=== PATIENT | female | born 1990 | race Caucasian/White ===

== ENCOUNTER 2016-06-23 07:08 | Inpatient (IN) | payer OTHER ==
[~2016-06-23] VITALS: Ht 149.9 cm; Wt 69.9 kg
[~2016-06-23 07:08] MED LIST: ANTIVERT 25 MG25 MG PO; CATAPRES 0.1MG0.1 MG PO; CATAPRES0.1 MG PO; CLONIDINE0.1 MG PO; DOCUSATE SODIU100 MG PO; HYDROMORPHONE HC2 MG PO; JUNEL FE 1/20 21 TAB PO; LATUDA40 MG PO; MOBIC15 MG PO; MOTRIN 800MG T800 MG PO; NEURONTIN300 MG PO; NORCO 325 MG-51 TAB PO; PRENATAL1 TA2 PO; XANAX0.5 MG PO; ZOFRAN ODT4 MG SL; ZOLOFT 100 MG100 MG PO; ZOLOFT50 MG PO
--- NOTE | 2016-06-23 07:13 | NUR ---
25 YEAR OLD FEMALE WITH HISTORY OF OVARIAN CYST STATES THAT SHE WOKE THIS AM WITH 10/10 LOW ABD PAIN THAT SHOOTS INTO HER GROIN, PAIN HAS BEEN CONSTANT. COMPLAINS OF N/V FROM THE PAIN. " PT STATES THAT IT FEELS LIKE THE LAST TIME SHE HAD A CYST BURST. LMP MID LAST MONTH
--- NOTE | 2016-06-23 07:33 | ED GI/GU/ABDOMINAL COMPLAINT ---
History of Present Illness General Chief Complaint: Abdominal Pain/Flank Pain Stated Complaint: ABDOMINAL PAIN Source: patient Exam Limitations: no limitations Vital Signs & Intake/Output Vital Signs & Intake/Output Vital Signs Date Time Temp Pulse Resp B/P B/P Pulse O2 O2 Flow FiO2 Mean Ox Delivery Rate 06/23 0813 Room Air 06/23 0711 96.9 108 18 105/75 100 Room Air Allergies Coded Allergies: No Known Allergies (05/17/15) Reconcile Medications Ibuprofen 800 MG TABLET 800 MG PO Q6P PRN PAIN Lamotrigine (Lamictal) 100 MG TABLET 1 TAB PO DAILY UNKNOWN (Reported) Propranolol HCl 20 MG TABLET 1 TAB PO DAILY UNKNOWN (Reported) Sertraline HCl (Zoloft) 100 MG TABLET 2 TAB PO DAILY MENTAL HEALTH (Reported) Triage Note: 25 YEAR OLD FEMALE WITH HISTORY OF OVARIAN CYST STATES THAT SHE WOKE THIS AM WITH 10/10 LOW ABD PAIN THAT SHOOTS INTO HER GROIN, PAIN HAS BEEN CONSTANT. COMPLAINS OF N/V FROM THE PAIN. " PT STATES THAT IT FEELS LIKE THE LAST TIME SHE HAD A CYST BURST. LMP MID LAST MONTH Triage Nurses Notes Reviewed? yes ? N Is pt currently ? No Onset: Abrupt Duration: hour(s): (2) Timing: multiple episodes today Quality/Severity: severe Severity Numbers: 10 Location: generalized abdomen, suprapubic Radiation: no radiation Sexually Active: Yes Last Time You Were Sexual: less than 2 months ago No Modifying Factors: none Associated Symptoms: diarrhea, nausea/vomiting HPI: This is a 25 Y/O [id number] is the ER with chief complaint of abrupt onset of severe, 10 out of 10 lower abdominal pain. She states that she woke up this morning at 6 am and had 1 episode of diarrhea and then had suddent onset of pain. After that she became hunched over on the toilet had a few episodes of loose vomiting. She states after that she was on the floor. Denies any urinary discomfort. No fever or chills. She was fine until yesterday. Denies any change in food, travel or antibiotic use. Denies chance of . LMP was sometime during the last 1 month. Denies any vaginal discharge. She states that she had similar symptoms when she had ovarian cyst rupture in 2009. She is also status post appendectomy. Pain is associated with nausea, vomiting and diarrhea. Pain is made worse by lying totally flat. No relieving symptoms. Past History Travel History Traveled to [place] past 21 day No Medical History Any Pertinent Medical History? 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 No Review of Systems Review of Systems Constitutional: Denies: chills, fever. EENTM: Reports: no symptoms. Respiratory: Reports: no symptoms. Cardiovascular: Reports: no symptoms. GI: Reports: abdominal pain, diarrhea, nausea, vomiting. Genitourinary: Denies: discharge, dysuria, frequency, hesitation. Musculoskeletal: Denies: back pain. Skin: Reports: no symptoms. Neurological/Psychological: Reports: no symptoms. Hematologic/Endocrine: Denies: bruising, bleeding, polyuria, polydipsia. Immunologic/Allergic: Denies: splenectomy. All Other Systems: Reviewed and Negative Physical Exam Physical Exam General Appearance: well developed/nourished, alert, awake, anxious, moderate distress, obese Head: atraumatic, normal appearance Eyes: Bilateral: normal appearance, PERRL, EOMI. Ears, Nose, Throat, Mouth: hearing grossly normal, moist mucous membrane Neck: normal inspection, supple, full range of motion Respiratory: normal breath sounds, chest non-tender, no respiratory distress Cardiovascular: tachycardia Peripheral Pulses: 2+ radial (R), 2+ radial (L) Gastrointestinal: FIRM, DISTENDED, POSITIVE REBOUND/GUARDING Extremities: normal range of motion Neurologic/Psych: no motor/sensory deficits, awake, alert, oriented x 3 Skin: intact, normal color, warm/dry Core Measures ACS in differential dx? No Severe Sepsis Present: No Septic Shock Present: No Progress Differential Diagnosis: ectopic , intrauterine , kidney stone, ovarian cyst, ovarian torsion Plan of Care: Orders Procedure Date/time Status LACTIC ACID 06/23 1105 Active Add-on Test (ER Only) 06/23 0837 Active LACTIC ACID 06/23 804 Complete HUMAN BETA HCG TITRE 06/24 799 Complete URINALYSIS 06/23 744 Active PARTIAL THROMBOPLASTIN TIME 06/23 744 Complete PROTHROMBIN TIME 06/23 744 Complete HUMAN BETA HCG SCREEN 06/23 744 Complete COMPREHENSIVE METABOLIC PANEL 06/23 744 Complete CBC WITHOUT DIFFERENTIAL 06/23 744 Complete TYPE & SCREEN (NOT X-MATCH) 06/23 744 Active Current Medications Sig/Hadley Start time Last Medication Dose Stop Time Status Admin Sodium Chloride 1,000 ML BOLUS ONE 06/23 844 AC 06/23 (Normal Saline 0.9%) 06/23 0944 0910 Laboratory Tests 06/23/16 0800: Lactic Acid 4.7 H 06/23/16 0800: Anion Gap 16, Estimated GFR > 60, BUN/Creatinine Ratio 15.0, Glucose 176 H, Calcium 9.6, Total Bilirubin 0.5, AST 24, ALT 26, Alkaline Phosphatase 73, Total Protein 7.1, Albumin 4.5, Globulin 2.6, Albumin/Globulin Ratio 1.7, Beta HCG, Quant 6032.8, Total Beta HCG POSITIVE, PT 10.6, INR 1.01, APTT 25, CBC w Diff MAN DIFF ORDERED, RBC 4.26, MCV 87.2, MCH 29.0, RDW 13.3, MPV 9.2, Gran % 88.5 H, Lymphocytes % 7.6 L, Monocytes % 1.5 L, Eosinophils % 1.9, Basophils % 0.5, Absolute Granulocytes 16.8 H, Absolute Lymphocytes 1.4, Absolute Monocytes 0.3, Absolute Eosinophils 0.4, Absolute Basophils 0.1, Platelet Estimate ADEQUATE, Normocytic RBCs VERIFIED, Normochromic RBCs VERIFIED, PUBS MCHC 33.3 stat u/s ordered. labs, morphine ordered. 8:42 am ectopic right adnexal . dr ting hector. patient prepared for OR. D/W Dr. howell. Patient to be transported to OR. (TED CHAPPELL,TREMAINE) Diagnostic Imaging: Viewed by Me: Ultrasound. Discussed w/RAD: Ultrasound. Radiology Impression: PATIENT: YVETTE MILLER PRESENT AGE: 25 PATIENT ACCOUNT NO: [id number] : 89 LOCATION: ER ORDERING PHYSICIAN: TREMAINE PICKERING MD SERVICE DATE: 06/23/16 EXAM TYPE: US - US-TRANSVAGINAL EXAMINATION: US PELVIS TRANSVAGINAL CLINICAL INFORMATION: 25-year-old female with sudden onset lower abdominal pain, vomiting. The patient is . COMPARISON: Pelvic ultrasound done on 01/21/2014. TECHNIQUE: Transvaginal pelvic ultrasound. FINDINGS: The uterus is retroverted, measures 6.2 x 3.5 x 6.5 cm. The endometrial stripe is thickened, homogeneous, and measures 0.7 cm at its maximum transverse dimension at the level of the fundus. The uterine cavity, however, is empty. The cervix is closed and measures 2.5 cm. There is no focal intrauterine abnormality identified. The left ovary is not visualized. The right ovary is identified, measures 2.2 x 3.0 x 2.0 cm, volume of 7.2 mL. Arterial as well as venous flow to the right ovary is well maintained. In the region of the right adnexa, there is a hypervascular, oval- shaped, mixed echogenic structure identified, showing a peripheral echogenic rim and central anechogenicity which measures 2.0 x 1.2 x 1.7 cm. Within the central anechogenicity, there is a pole visualized measuring 0.6 cm at its maximum crown-rump length. On real-time evaluation, cardiac activity was visualized with a heart rate of 141 bpm. There is hypervascularity along the periphery, consistent with "tubal ring sign". There is significant adjacent somewhat echogenic material identified in the adnexal region. The gestational age based on the sonographic criteria is 6 weeks and 4 days. Given the presence of heartbeat, the location of the gestational sac and the presence of adjacent echogenic material, the finding is most consistent with an extrauterine ectopic , likely tubal, suspicious for rupture. Clinical and laboratory correlation including hemodynamic assessment is recommended. Gynecological consultation is recommended. IMPRESSION: 1. Abnormal pelvic ultrasound showing features consistent with a live, ectopic in the region of the right adnexa, likely tubal, suspicious for rupture. Clinical and laboratory correlation including hemodynamic assessment is recommended. Gynecological consultation is recommended. 2. Nonvisualized left ovary. This critical result was discussed with Dr. Pickering at 8:43 AM on 06/23/2016 and it was ascertained that the content and urgency of the report was understood at the time of direct communication. DICTATED BY: VIK REYNAGA MD DATE/TIME DICTATED:06/23/16843 HUMAN RESOURCES COMPENSATION ANALYST:SURINDER DATE/TIME TRANSCRIBED:06/23/16843 CONFIDENTIAL, DO NOT COPY WITHOUT APPROPRIATE AUTHORIZATION. <Electronically signed in Other Vendor System> SIGNED BY: VIK REYNAGA MD 06/23/16 0925 Initial ED EKG: none Departure Departure Time of Disposition: 1000 Disposition: STILL A PATIENT Condition: Stable Clinical Impression Primary Impression: Ruptured ectopic Referrals: TYE SPAULDING MD (PCP/Family) Departure Forms: Customer Survey General Discharge Information Prescriptions: Current Visit Scripts Ibuprofen 800 MG PO Q6P PRN PAIN #60 OR/GI Note Spoke With: BEBO GARDINER MD,MARTHA ED Treatment Decision: YVETTE MILLER requires urgent operative management or an emergent procedure that cannot be performed in the Emergency Room setting. Transport To: [facility] Critical Care Note Critical Care Note Critical Care Time: 30-74 min
--- NOTE | 2016-06-23 08:08 | NUR ---
22G PLACED IN LEFT HAND, LABS DRAWN AND SENT.
--- NOTE | 2016-06-23 08:09 | NUR ---
IV NS BOLUS INFUSING PER eMAR.
--- NOTE | 2016-06-23 08:10 | NUR ---
PT MEDICATED PER EMAR FOR ABD PAIN AND NAUSEA
--- NOTE | 2016-06-23 08:13 | NUR ---
PT TO US VIA STRETCHER
[2016-06-23 08:20] LABS: ABSOLUTE BASOPHIL COUNT 0.1 /CUMM (0.0-0.2); ABSOLUTE EOSINOPHIL COUNT 0.4 /CUMM (0.0-0.7); ABSOLUTE GRANULOCYTE CT 16.8 /CUMM (1.4-6.5); ABSOLUTE LYMPH COUNT 1.4 /CUMM (1.2-3.4); ABSOLUTE MONOCYTE COUNT 0.3 /CUMM (0.10-0.60); BASOPHIL % 0.5 % (0.0-2.0); EOSINOPHIL % 1.9 % (0-5); GRANULOCYTE % 88.5 % (42.2-75.2); HEMATOCRIT 37.1 % (37-47); MEAN CORPUSCULAR HGB CONC 33.3 G/DL (33.0-37.0); MEAN CORPUSCULAR VOLUME 87.2 FL (81.0-99.0); MEAN PLATELET VOLUME 9.2 FL (7.4-10.4); PLATELET COUNT 295 /CUMM (130-400); RBC DISTRIBUTION WIDTH 13.3 % (11.5-14.5); RED BLOOD CELL CT 4.26 /CUMM (4.20-5.40)
[2016-06-23 08:31] LABS: PT 10.6 SEC (9.4-12.5); PTT 25 SEC (25-37)
--- NOTE | 2016-06-23 08:36 | NUR ---
LAB CALLED TO NOTIFIED THAT PINK TOP HEMOLYZED
--- NOTE | 2016-06-23 08:49 | NUR ---
PER DR JEAN THE LAB CALLED AND PT LACTIC LEVEL IS 4.7
[2016-06-23] MEDS ORDERED: PROPRANOLOL HCL20 M1 PO (09:05)
[2016-06-23] MEDS ORDERED: LAMICTAL100 M2 PO (09:06)
[2016-06-23] MEDS ORDERED: ZOLOFT100 M1 PO (09:06)
--- NOTE | 2016-06-23 09:25 | ULTRASOUND REPORT ---
EXAMINATION: US PELVIS TRANSVAGINAL CLINICAL INFORMATION: 25-year-old female with sudden onset lower abdominal pain, vomiting. The patient is . COMPARISON: Pelvic ultrasound done on 01/21/2014. TECHNIQUE: Transvaginal pelvic ultrasound. FINDINGS: The uterus is retroverted, measures 6.2 x 3.5 x 6.5 cm. The endometrial stripe is thickened, homogeneous, and measures 0.7 cm at its maximum transverse dimension at the level of the fundus. The uterine cavity, however, is empty. The cervix is closed and measures 2.5 cm. There is no focal intrauterine abnormality identified. The left ovary is not visualized. The right ovary is identified, measures 2.2 x 3.0 x 2.0 cm, volume of 7.2 mL. Arterial as well as venous flow to the right ovary is well maintained. In the region of the right adnexa, there is a hypervascular, oval-shaped, mixed echogenic structure identified, showing a peripheral echogenic rim and central anechogenicity which measures 2.0 x 1.2 x 1.7 cm. Within the central anechogenicity, there is a pole visualized measuring 0.6 cm at its maximum crown-rump length. On real-time evaluation, cardiac activity was visualized with a heart rate of 141 bpm. There is hypervascularity along the periphery, consistent with "tubal ring sign". There is significant adjacent somewhat echogenic material identified in the adnexal region. The gestational age based on the sonographic criteria is 6 weeks and 4 days. Given the presence of heartbeat, the location of the gestational sac and the presence of adjacent echogenic material, the finding is most consistent with an extrauterine ectopic , likely tubal, suspicious for rupture. Clinical and laboratory correlation including hemodynamic assessment is recommended. Gynecological consultation is recommended. IMPRESSION: 1. Abnormal pelvic ultrasound showing features consistent with a live, ectopic in the region of the right adnexa, likely tubal, suspicious for rupture. Clinical and laboratory correlation including hemodynamic assessment is recommended. Gynecological consultation is recommended. 2. Nonvisualized left ovary. This critical result was discussed with Dr. Pickering at 8:43 AM on 06/23/2016 and it was ascertained that the content and urgency of the report was understood at the time of direct communication.
--- NOTE | 2016-06-23 10:07 | NUR ---
PT TO OR VIA STRETCHER
[2016-06-23 11:03] LABS: ABSOLUTE BASOPHIL COUNT 0 /CUMM (0.0-0.2); ABSOLUTE EOSINOPHIL COUNT 0 /CUMM (0.0-0.7); ABSOLUTE LYMPH COUNT 1.4 /CUMM (1.2-3.4); ABSOLUTE MONOCYTE COUNT 0.3 /CUMM (0.10-0.60); BASOPHIL % 0.1 % (0.0-2.0); EOSINOPHIL % 0.1 % (0-5); GRANULOCYTE % 91.7 % (42.2-75.2); MEAN CORPUSCULAR HGB 29.3 PG (27.0-31.0); MEAN CORPUSCULAR HGB CONC 33.7 G/DL (33.0-37.0); MEAN CORPUSCULAR VOLUME 86.9 FL (81.0-99.0); MEAN PLATELET VOLUME 9.4 FL (7.4-10.4); PLATELET COUNT 161 /CUMM (130-400); RBC DISTRIBUTION WIDTH 13.1 % (11.5-14.5); WHITE BLOOD CELL COUNT 20.8 /CUMM (4.8-10.8)
[2016-06-23 11:08] LABS: HEMATOCRIT 23.9 % (37-47); RED BLOOD CELL CT 2.75 /CUMM (4.20-5.40)
--- NOTE | 2016-06-23 11:37 | RADIOLOGY REPORT ---
EXAMINATION: XR PORTABLE ABDOMEN CLINICAL INFORMATION: Status post emergency surgery for ectopic . Suspected foreign body. COMPARISON: None TECHNIQUE: AP view of the abdomen. FINDINGS: No radiopaque foreign body is identified within the pelvis and visualized part of the abdomen. Multiple surgical pk are seen projecting across the midline within the mid to lower pelvis. IMPRESSION: No radiopaque foreign bodies present. This critical result was discussed with Dr. Stanley at 11:31 AM on 06/23/2016 and it was ascertained that the content and urgency of the report was understood at the time of direct communication.
[2016-06-23 16:40] LABS: ABSOLUTE BASOPHIL COUNT 0.1 /CUMM (0.0-0.2); ABSOLUTE EOSINOPHIL COUNT 0 /CUMM (0.0-0.7); ABSOLUTE GRANULOCYTE CT 15.1 /CUMM (1.4-6.5); ABSOLUTE LYMPH COUNT 0.9 /CUMM (1.2-3.4); ABSOLUTE MONOCYTE COUNT 0.4 /CUMM (0.10-0.60); BASOPHIL % 0.6 % (0.0-2.0); EOSINOPHIL % 0 % (0-5); HEMATOCRIT 27.4 % (37-47); MEAN CORPUSCULAR HGB 29.4 PG (27.0-31.0); MEAN CORPUSCULAR HGB CONC 33.4 G/DL (33.0-37.0); MEAN CORPUSCULAR VOLUME 88.1 FL (81.0-99.0); MEAN PLATELET VOLUME 8.6 FL (7.4-10.4); PLATELET COUNT 175 /CUMM (130-400); RBC DISTRIBUTION WIDTH 13.2 % (11.5-14.5); RED BLOOD CELL CT 3.11 /CUMM (4.20-5.40); WHITE BLOOD CELL COUNT 16.5 /CUMM (4.8-10.8)
[2016-06-23 16:47] LABS: GRANULOCYTE % 91.2 % (42.2-75.2)
--- NOTE | 2016-06-23 18:39 | History & Physical Pre-Op ---
General Information and HPI History of Present Illness: This patient is a 25-year-old 3 para 2 LMP 3 weeks ago presents to the emergency room complaining of abdominal pain. Vision has a history of ovarian cyst and she believes that she had a return of ovarian cyst causing pain. Patient was on oral contraceptive pills however she was noncompliant. She denied any vaginal bleeding. Ultrasound this morning revealed a right ectopic consistent with 6 weeks and heart activity present. The a small amount of fluid was noted surrounding the . 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 EENTM: Denies: no symptoms, see HPI, blurred vision, double vision, visual changes, eye pain, eye drainage, eye tearing, icterus, ear discharge, ear pain, ear redness, hearing changes, nasal congestion, epistaxis, nasal pain, throat pain, throat swelling, mouth pain, tooth pain. Cardiovascular: Denies: no symptoms, see HPI, chest pain, edema, orthopena, palpitations, peripheral edema, syncope. Respiratory: Denies: no symptoms, see HPI, cough, hemoptysis, orthopnea, short of breath, sputum production, stridor, wheezing. GI: Reports: abdominal pain. Denies: no symptoms, see HPI, bloating, constipation, diarrhea, distention, bowel incontinence, melena, nausea, bloody stool, changes in stool, vomiting, steatorrhea. Genitourinary: Denies: no symptoms, see HPI, discharge, dysuria, frequency, hematuria, hesitation, nocturia, pain, urgency. Musculoskeletal: Denies: no symptoms, see HPI, back pain, gout, joint pain, joint swelling, muscle pain, muscle stiffness, neck pain. Skin: Denies: no symptoms, see HPI, cysts, change in skin color, change in hair/nails, dryness, erythema, jaundice, lesions, lymphangitis, lumps, moles, rash. Neurological/Psychological: Denies: no symptoms, see HPI, anxiety, ataxia, cognitive dysfunction, confusion, depressed, dementia, emotional problems, headache, numbness, paresthesia, pre- existing deficit, petit mal seizures, tingling, tremors, tonic-clonic seizures, unable to move lower ext, unable to move upper ext, weakness, other. Hematologic/Endocrine: Denies: no symptoms, see HPI, bruising, bleeding, polyuria, polydipsia, other. Immunologic/Allergic: Denies: no symptoms, see HPI, splenectomy, HIV/AIDS, lymphadenopathy, other. All Other Systems: Reviewed and Negative Exam & Diagnostic Data Last 24 Hrs of Vital Signs/I&O Vital Signs Date Time Temp Pulse Resp B/P B/P Pulse O2 O2 Flow FiO2 Mean Ox Delivery Rate 06/23 1004 98.9 97 16 115/56 100 06/23 0813 Room Air 06/23 0711 96.9 108 18 105/75 100 Room Air Intake & Output 06/23 1600 / 0800 05 0000 Intake Total 1000 Output Total Balance 1000 Intake, IV 1000 Patient 154 lb Weight Physical Exam: HEENT: Normocephalic atraumatic Chest: Clear to auscultation bilaterally Cardiovascular: Normal S1-S2, tachycardia Abdomen: Tender distended Pelvic: Deferred to the OR Extremities: No clubbing cyanosis or edema Last 24 Hrs of Labs/George: Laboratory Tests 06/23/16 1630: CBC w Diff NO MAN DIFF REQ, RBC 3.11 L, MCV 88.1, MCH 29.4, RDW 13.2, MPV 8.6, Gran % 91.2 H, Lymphocytes % 5.6 L, Monocytes % 2.6, Eosinophils % 0, Basophils % 0.6, Absolute Granulocytes 15.1 H, Absolute Lymphocytes 0.9 L, Absolute Monocytes 0.4, Absolute Eosinophils 0, Absolute Basophils 0.1, [facility] 33.4 06/23/16 1100: CBC w Diff MAN DIFF ORDERED, RBC 2.75 L, MCV 86.9, MCH 29.3, RDW 13.1, MPV 9.4, Gran % 91.7 H, Lymphocytes % 6.7 L, Monocytes % 1.4 L, Eosinophils % 0.1, Basophils % 0.1, Absolute Granulocytes 19.0 H, Absolute Lymphocytes 1.4, Absolute Monocytes 0.3, Absolute Eosinophils 0, Absolute Basophils 0, Platelet Estimate ADEQUATE, Normocytic RBCs VERIFIED, Hypochromic-Microcytic 1+, Poikilocytosis RARE, [facility] 33.7 06/23/16 0800: Lactic Acid 4.7 H 06/23/16 0800: Anion Gap 16, Estimated GFR > 60, BUN/Creatinine Ratio 15.0, Glucose 176 H, Calcium 9.6, Total Bilirubin 0.5, AST 24, ALT 26, Alkaline Phosphatase 73, Total Protein 7.1, Albumin 4.5, Globulin 2.6, Albumin/Globulin Ratio 1.7, Beta HCG, Quant 6032.8, Total Beta HCG POSITIVE, PT 10.6, INR 1.01, APTT 25, CBC w Diff MAN DIFF ORDERED, RBC 4.26, MCV 87.2, MCH 29.0, RDW 13.3, MPV 9.2, Gran % 88.5 H, Lymphocytes % 7.6 L, Monocytes % 1.5 L, Eosinophils % 1.9, Basophils % 0.5, Absolute Granulocytes 16.8 H, Absolute Lymphocytes 1.4, Absolute Monocytes 0.3, Absolute Eosinophils 0.4, Absolute Basophils 0.1, Platelet Estimate ADEQUATE, Normocytic RBCs VERIFIED, Normochromic RBCs VERIFIED, [facility] 33.3 Microbiology 06/23 1115 URINE ROUT: Urine Culture - RECD Diagnostic Data ITS Data Unobtainable at this time Assessment/Plan Assessment/Plan: Ectopic right fallopian tube Plan: Laparoscopy, possible laparotomy As Ranked By This Provider Problem List: 1. Ruptured ectopic
--- NOTE | 2016-06-23 18:42 | Operative Report ---
Operative/Inv Procedure Report Surgery Date: 06/23/16 Name of Procedure: Exploratory laparotomy right salpingectomy Pre-Operative Diagnosis: Ruptured ectopic Post-Operative Diagnosis: Hemoperitoneum, ruptured right ectopic Estimated Blood Loss: 2000cc Surgeon/Machine Chocolate Molder: BEBO GARDINER MD,MARTHA Kaufman M.D. Anesthesia: general endotracheal tube Operative/Procedure Note Note: Is brought to the operating room placed on the OR table in the dorsal supine position. She quickly became unstable and was quickly anesthetized and intubated. A Muniz catheter was placed the abdomen was prepped and draped. A Pfannenstiel skin incision was made with the scalpel through the old scar and taken down to the layer of the fascia. The fascia was nicked in the midline and extended bilaterally. Rectus muscles are . The peritoneal cavity was entered sharply and old blood began to rise through the opening. This was suctioned out with suction. H&H on was incised superiorly and bilaterally. Proximally 2000 mL of old clot were removed. The uterus was noted and elevated. The right fallopian tube was ruptured near the cornua with evidence of bleeding. A Viv clamp was placed across the fallopian tube at this point transected and suture ligated with 0 Polysorb. There was some bleeding inferior on the broad ligament and a clamp was placed here suture ligated with good hemostasis. There was a small tear in the serosa which was bleeding lightly and this was reapproximated in a running suture of 3-0 Polysorb. Eventually all of the clot was removed and the pelvis was copiously irrigated and was noted to be hemostatic. The laparotomy pads were removed as well as these retractors which were used for surgery. The rectus muscles were reapproximated with a mattress suture of 2-0 Polysorb. The fascia was then closed using 0 Polysorb in a running nonlocking fashion. The tenderness tissues were irrigated and coagulated were needed and closed with 20 plain suture material. The skin was closed with pk and dressed with a dry sterile dressing. The patient was transfused with 1 unit of packed red blood cells and sent to recovery in stable condition. A postoperative abdominal flat plate was obtained since there was no prior count and this returned negative.
[2016-06-23 22:58] LABS: ABSOLUTE BASOPHIL COUNT 0 /CUMM (0.0-0.2); ABSOLUTE EOSINOPHIL COUNT 0 /CUMM (0.0-0.7); ABSOLUTE GRANULOCYTE CT 10.3 /CUMM (1.4-6.5); ABSOLUTE LYMPH COUNT 1.6 /CUMM (1.2-3.4); ABSOLUTE MONOCYTE COUNT 0.9 /CUMM (0.10-0.60); BASOPHIL % 0.3 % (0.0-2.0); EOSINOPHIL % 0.3 % (0-5); GRANULOCYTE % 80.1 % (42.2-75.2); HEMATOCRIT 23.5 % (37-47); MEAN CORPUSCULAR HGB 29.4 PG (27.0-31.0); MEAN CORPUSCULAR HGB CONC 33.5 G/DL (33.0-37.0); MEAN CORPUSCULAR VOLUME 87.7 FL (81.0-99.0); MEAN PLATELET VOLUME 8.2 FL (7.4-10.4); PLATELET COUNT 159 /CUMM (130-400); RBC DISTRIBUTION WIDTH 13.6 % (11.5-14.5); RED BLOOD CELL CT 2.68 /CUMM (4.20-5.40); WHITE BLOOD CELL COUNT 12.9 /CUMM (4.8-10.8)
[2016-06-24 09:00] LABS: ABSOLUTE BASOPHIL COUNT 0 /CUMM (0.0-0.2); ABSOLUTE EOSINOPHIL COUNT 0.1 /CUMM (0.0-0.7); ABSOLUTE GRANULOCYTE CT 7.3 /CUMM (1.4-6.5); ABSOLUTE LYMPH COUNT 2.5 /CUMM (1.2-3.4); ABSOLUTE MONOCYTE COUNT 0.7 /CUMM (0.10-0.60); BASOPHIL % 0.3 % (0.0-2.0); EOSINOPHIL % 1.2 % (0-5); GRANULOCYTE % 68.1 % (42.2-75.2); HEMATOCRIT 22.1 % (37-47); MEAN CORPUSCULAR HGB 30.2 PG (27.0-31.0); MEAN CORPUSCULAR HGB CONC 34.4 G/DL (33.0-37.0); MEAN CORPUSCULAR VOLUME 87.8 FL (81.0-99.0); MEAN PLATELET VOLUME 9.3 FL (7.4-10.4); PLATELET COUNT 144 /CUMM (130-400); RBC DISTRIBUTION WIDTH 13.8 % (11.5-14.5); RED BLOOD CELL CT 2.52 /CUMM (4.20-5.40); WHITE BLOOD CELL COUNT 10.7 /CUMM (4.8-10.8)
--- NOTE | 2016-06-24 09:55 | PN- Post Delivery/GYN ---
Subjective Subjective: Overall doing well this morning. Pain is controlled with IV meds and Dilaudid HEAD OF ICT (though patient has not used much overnight). Is complaining of headache ( suffers from migraines) that she attributes to the narcotic. Minimal nausea, no vomiting. No flatus yet. Has not ambulated. Denies lightheadedness or dizziness. Review of Systems: per above Objective Last 24 Hrs of Vital Signs/I&O Vital Signs Date Time Temp Pulse Resp B/P B/P Pulse O2 O2 Flow FiO2 Mean Ox Delivery Rate 06/25 947 97.8 84 18 100/58 06/23 1004 98.9 97 16 115/56 100 Physical Exam: NAD RRR S1 and S2 CTAB Abd: Soft , expected TTP, no rebound, binder in place bandage in place, not saturated. Ext: no edema or erythema Current Medications: Current Medications Sig/Hadley Start time Last Medication Dose Route Stop Time Status Admin Acetaminophen 650 MG Q4P PRN 06/24 0945 UNVr PO Acetaminophen 1,000 MG Q6P PRN 06/23 1200 DC 06/24 N/A 1 UNIT IV 0620 Clonazepam 0.5 MG ONCE ONE 06/23 1815 DC PO 06/23 1816 Dextrose/Lactated 1,000 ML Q6H 06/23 1145 AC 06/23 Ringer's IV 1830 Diphenhydramine HCl 50 MG Q6P PRN 06/23 1145 AC IV Hydromorphone HCl 50 MG Q24H PRN 06/23 1245 DC Sodium Chloride 45 ML IV Hydromorphone HCl 2 MG .STK-MED ONE 06/23 1157 DC IM 06/23 1158 Hydromorphone HCl 50 MG ONE TIME ONE 06/23 1145 CAN IV 06/23 1146 Ibuprofen 800 MG 4 TIMES/DAY 06/24 1000 UNVr 06/24 PO 0949 Ibuprofen 800 MG Q6P PRN 06/23 1200 DC PO Ketorolac 30 MG Q6P PRN 06/23 1200 DC 06/24 Tromethamine IV 0519 Lamotrigine 100 MG DAILY 06/23 180 AC 06/24 PO 0948 Ondansetron HCl 4 MG Q6P PRN 06/23 1145 AC IV Propranolol HCl 20 MG DAILY 06/23 180 AC 06/24 PO 0948 Sertraline HCl 50 MG DAILY 06/23 1809 AC 06/24 PO 0948 Trazodone HCl 10 MG ONCE PRN 06/23 1815 CAN PO Last 24 Hrs of Labs/George: Laboratory Tests 06/24/16 0645: CBC w Diff Pending, WBC Pending, RBC Pending, Hgb Pending, Hct Pending, MCV Pending, MCH Pending, RDW Pending, Plt Count Pending, MPV Pending, PUBS MCHC Pending 06/23/16 2230: CBC w Diff NO MAN DIFF REQ, RBC 2.68 L, MCV 87.7, MCH 29.4, RDW 13.6, MPV 8.2, Gran % 80.1 H, Lymphocytes % 12.4 L, Monocytes % 6.9, Eosinophils % 0.3, Basophils % 0.3, Absolute Granulocytes 10.3 H, Absolute Lymphocytes 1.6, Absolute Monocytes 0.9 H, Absolute Eosinophils 0, Absolute Basophils 0, PUBS MCHC 33.5 06/23/16 1630: CBC w Diff NO MAN DIFF REQ, RBC 3.11 L, MCV 88.1, MCH 29.4, RDW 13.2, MPV 8.6, Gran % 91.2 H, Lymphocytes % 5.6 L, Monocytes % 2.6, Eosinophils % 0, Basophils % 0.6, Absolute Granulocytes 15.1 H, Absolute Lymphocytes 0.9 L, Absolute Monocytes 0.4, Absolute Eosinophils 0, Absolute Basophils 0.1, PUBS MCHC 33.4 06/23/16 1105: Lactic Acid Cancelled 06/23/16 1100: CBC w Diff MAN DIFF ORDERED, RBC 2.75 L, MCV 86.9, MCH 29.3, RDW 13.1, MPV 9.4, Gran % 91.7 H, Lymphocytes % 6.7 L, Monocytes % 1.4 L, Eosinophils % 0.1, Basophils % 0.1, Absolute Granulocytes 19.0 H, Absolute Lymphocytes 1.4, Absolute Monocytes 0.3, Absolute Eosinophils 0, Absolute Basophils 0, Platelet Estimate ADEQUATE, Normocytic RBCs VERIFIED, Hypochromic-Microcytic 1+, Poikilocytosis RARE, PUBS MCHC 33.7 Microbiology 06/23 1115 URINE ROUT: Urine Culture - RES Assessment/Plan Assessment/Plan 25 yo female POD #1 s/p R salpingectomy via Pfannenstiel incision due to rupture ectopic. Overall doing well Will D/c HEAD OF ICT today and switch to Ibuprofen scheduled and Tylenol PRN. Patient refusing narcotics at this time. Will D/C baugh and encourage ambulation. Monitor voids Switch to regular diet. Monitor Nausea/vomiting and tolerance. Antinausea meds PRN. Remove bandage 24 hrs post op. CBC pending this morning. Will await results, though no evidence of ongoing bleeding. She is s/p tranfusion intraop yesterday. Trend per above. Continue IS Continue lamictal and zoloft for psych dx (Bipolar depression). No acute issues Continue Propranolol for tremors Will plan for d/c tomorrow if stable and meeting milestones. Problem List: 1. Ruptured ectopic 2. Depression Attending MD Review Statement Attending Statement Attending MD Statement: examined this patient, discussed with family, discussed with nursing
--- NOTE | 2016-06-24 10:13 | PN- Post Delivery/GYN ---
See Addendum Subjective Subjective: Doing well today with no complaints. Ambulating, tolerating PO, voiding well and passing flatus. Asking to go home today Objective Last 24 Hrs of Vital Signs/I&O Vital Signs Date Time Temp Pulse Resp B/P B/P Pulse O2 O2 Flow FiO2 Mean Ox Delivery Rate 06/24 0948 97.8 84 18 100/58 Physical Exam: NAD RRR CTAB NT and good BS Assessment/Plan Assessment/Plan POD#3 s/p LTCS Doing well overall and can be discharged home (meeting all milestones) Discharge instructions and precautions given. Patient voiced understanding. Attending MD Review Statement Attending Statement Attending MD Statement: examined this patient, discussed with family, discussed with nursing
[2016-06-25 10:32] VITALS: BP 100/60
--- NOTE | 2016-06-25 11:15 | PN- Post Delivery/GYN ---
Subjective Subjective: Doing well overall. Pain controlled with ibuprofen. Still having low level headache, patient describes this is normal for her. Voiding well. Tolerating PO. ambulating. Minimal vaginal bleeding. Asking for discharge. Review of Systems: per above Objective Last 24 Hrs of Vital Signs/I&O Vital Signs Date Time Temp Pulse Resp B/P B/P Pulse O2 O2 Flow FiO2 Mean Ox Delivery Rate 06/25 1032 97.3 80 18 100/60 Physical Exam: NAD RRR CTAB NT ND, good BS Incision: C/D/I, pk in place. Current Medications: Current Medications Sig/Hadley Start time Last Medication Dose Route Stop Time Status Admin Acetaminophen 650 MG Q4P PRN 06/24 0945 AC 05/ PO 1033 Dextrose/Lactated 1,000 ML Q6H 06/23 1145 AC 06/23 Ringer's IV 1830 Diphenhydramine HCl 50 MG Q6P PRN 06/23 1145 AC IV Ibuprofen 800 MG Q6H PRN / 1600 DC PO Ibuprofen 800 MG Q6P PRN / 1600 AC / PO 0802 Ibuprofen 800 MG 4 TIMES/DAY 06/24 1000 DC 05/06 PO 0949 Lamotrigine 100 MG DAILY 06/23 1809 AC 05/ PO 1032 Ondansetron HCl 4 MG Q6P PRN / 1145 AC IV Propranolol HCl 20 MG DAILY 06/23 1809 AC 05/07 PO 1032 Sertraline HCl 50 MG DAILY / 1809 AC 05/07 PO 1032 Assessment/Plan Assessment/Plan 25 YO female POD#2 s/p R Salpingectomy and suction of large hemoperitoneum via Pfannenstiel incision 2/2 ruptured ectopic Overall doing well Meeting all discharge milestones. Ok to be discharged home today. Precuations given and voiced understanding. Note excuses given to patient for her and . H/H stable per draw yesterday from immediate postop draw. No signs or symptoms of anemia. Problem List: 1. Ruptured ectopic 2. Anemia associated with acute blood loss Attending MD Review Statement Attending Statement Attending MD Statement: examined this patient, discussed with family, reviewed EMR data (avail), discussed with nursing
[2016-06-25] MEDS ORDERED: IBUPROFEN800 M1 PO (11:34)
--- NOTE | 2016-08-03 12:56 | Surgical Discharge Summary ---
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 Significant Other Services at Home: None What is Your Primary Language? Armenian ETOH Use: denies use Review of Systems: Abdominal pain Hospital Course Course Attending Physician: MARTHA COX MD Primary Care Physician: CHELLY CHAPPELL,[facility] Course: The patient presented to the emergency room department and was sent to the operating room for emergency surgery for ruptured ectopic . She underwent exploratory laparotomy with right salpingectomy to recovery in good condition. She was transfused 2 units of packed cells and sent to the floor. On postoperative day 1 her Muniz was discontinued her diet activities. Postoperative day 2 the patient was discharged Allergies: Coded Allergies: No Known Allergies (05/17/15) Disposition Summary Disposition Principal Diagnosis: Ruptured ectopic Additional Diagnosis: Hemorrhage Discharge Disposition: home or self care Discharge Instructions General Discharge Information Code Status: Full Code Patient's Diet: Limited activity Patient's Activity: Limited Follow-Up Instructions/Appts: 1 week Medications at Discharge Discharge Medications: Continue taking these medications: Propranolol HCl (Propranolol HCl) 20 MG TABLET 1 Tablet ORAL DAILY Qty = 30 Lamotrigine (Lamictal) 100 MG TABLET 1 Tablet ORAL DAILY Qty = 30 Sertraline HCl (Zoloft) 100 MG TABLET 2 Tablet ORAL DAILY Qty = 60 Start taking the following new medications: Ibuprofen (Ibuprofen) 800 MG TABLET 800 Milligram ORAL EVERY SIX HOURS NEEDED as needed for PAIN Qty = 60 No Refills Comments: Last Taken:06/25/16 Time:0800
== END 2016-06-25 11:50 | DRG 545 ==
LOC: ERH 07:08 → PACUH 10:41 → ENRESERV 13:09 → GNO 15:15
PROVIDERS: Emergency Medicine; ADMIT Obstetrics & Gynecology
PROC: 10T20ZZ Resection of Products of Conception, Ectopic, Open Approach (ICD-10-PCS; principal; 2016-06-23)
PROC: 0UB50ZZ Excision of Right Fallopian Tube, Open Approach (ICD-10-PCS; principal; 2016-06-23)
DX: O00.10 Tubal pregnancy without intrauterine pregnancy (principal); K66.1 Hemoperitoneum; D62 Acute posthemorrhagic anemia
CPT/HCPCS: GNOS; 74000; 86920; 87086; 88305; 96361; 96374; 96375; 96376; C9399; J0131; J1170; J1200; J1885; J2250; J2405; J3010; P9016